=== PATIENT | female | born 2000 | race Two or more races ===

== ENCOUNTER 2024-11-23 10:10 | Emergency (ER) | payer SELFPAY ==
[2024-11-23] MEDS: cefTRIAXone 2 GM, Lidocaine 1% 4.2 ML IM ONE (12:27)
== END 2024-11-23 12:27 | disposition home or self-care (01) ==
LOC: JD.ED 10:10
DX: H66.93 Otitis media, unspecified, bilateral (principal)
CPT/HCPCS: 96372; 99283; J0696; J2003